=== PATIENT | male | born 1990 | race African-American/Black ===

== ENCOUNTER 2025-02-21 01:11 | Emergency (ER) | payer OTHER ==
[~2025-02-21] VITALS: Ht 190.5 cm; Wt 103.1 kg
[2025-02-21 01:40] VITALS: O2SAT 99
[2025-02-21 02:37] LABS: TROPONIN I HIGH SENSITIVITY < 4 ng/L (3.0-53)
[2025-02-21] MEDS ORDERED: TRAM-534 MT (03:14)
[2025-02-21 03:27] VITALS: BP 125/62; PULSE 55; RESP 18; TEMP 36.9; O2SAT 100
== END 2025-02-21 03:37 | disposition home or self-care (01) ==
LOC: ER 01:11
DX: R07.89 Other chest pain (principal); F12.90 Cannabis use, unspecified, uncomplicated; J45.909 Unspecified asthma, uncomplicated; Z91.010 Allergy to peanuts; Z88.0 Allergy status to penicillin
CPT/HCPCS: 36415; 71045; 84484; 93005; 99285

== ENCOUNTER 2025-02-25 22:02 | Emergency (ER) | payer OTHER ==
[~2025-02-25] VITALS: Ht 190.5 cm; Wt 100.0 kg
[~2025-02-25 22:02] MED LIST: TRAM-534 MT
[2025-02-25 22:07] VITALS: O2SAT 96
[2025-02-25 22:08] VITALS: BP 122/72; PULSE 65; RESP 18; TEMP 36.7; O2SAT 98
== END 2025-02-25 23:27 | disposition left against medical advice (07) ==
LOC: ER 22:02
DX: R07.9 Chest pain, unspecified (principal); Z53.21 Procedure and treatment not carried out due to patient leaving prior to being seen by health care provider